=== PATIENT | male | born 1965 | race Caucasian/White ===

== ENCOUNTER 2016-11-10 03:56 | Emergency (ER) | payer MEDICAID ==
[~2016-11-10] VITALS: Ht 170.2 cm; Wt 92.5 kg
[2016-11-10] MEDS ORDERED: LACTULOSE10 GM/15 M PO (04:05)
[2016-11-10] MEDS ORDERED: SPIRONOLACTONE50 MG PO (04:05)
[2016-11-10] MEDS ORDERED: NORCO 325 MG-51 TAB PO (04:06)
[2016-11-10] MEDS ORDERED: LEADER MELATONIN5 MG PO (04:06)
[2016-11-10] MEDS ORDERED: PAROXETINE20 MG PO (04:06)
[2016-11-10 04:27] LABS: HEMOGLOBIN 14.4 g/dL (14.1-18.0)
--- NOTE | 2016-11-10 05:27 | Emergency Room Report ---
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 PT STATES THAT IT STARTED TONIGHT AROUND 2099. PT ALSO COMPLAINING OF PAIN IN LOWER BACK THAT HE STATES IS CHRONIC BUT HE WAS UNABLE TO TAKE HIS PAIN MEDICINE. PT ALSO WITH CIRRHOSIS OF THE LIVER AND KNOWN INGUINAL HERNIA Onset of symptoms date/time:11/09/16 or onset unknown for: Treatment Prior to Arrival: PT TRANSPORTED TO ED BY EMS. IV STARTED IN LAC AND IV FLUIDS STARTED. 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 N Clinical Suspician of Infection? N Mental Status: 1 - Regular (Normal Baseline) Sepsis Risk:Low Sepsis Risk Have you (or family members/close friends) recently traveled outside the [place]? N If Yes, where/when: Have you had exposure to infectious disease within the past month? N TB? Other? Specify: Source patient, RN notes reviewed, family, old records Exam Limitations no limitations Comment vomiting blood x 3 tonight with known hx of cirrhosis and no fever or rash Cardiac Chest Pain Chest pain indicative of cardiac No Timing/Duration this evening Severity moderate ALLERGIES Coded Allergies: No Known Allergies (11/10/16) Home Medications Reported Medications Spironolactone (Spironolactone) 50 MG PO BID #60 Lactulose (Lactulose) 10 GM PO BID #946 PAROXETINE (Paroxetine HCl) 20 MG PO DAILY HYDROCODONE/ACETAMINOPHEN ([place] 5-325 Tablet) 1 TAB PO TID Melatonin 5 MG PO QHS History Medical History General CAD? No Angina: No NV: No Hypertension? No Hyperlipidemia? No CHF? No DVT? No PE? No COPD? No Asthma? No Anemia? No GERD? No Gastric ulcers? No GI Bleed? No Hernia? Yes Thyroid Problems? No Hypothyroidism? No CVA? No Seizures? No Diabetes? No Renal Insuffiency? No End Stage Renal Disease? No UTI? No Stones? No BPH? No GB Disease: No Nephritic Syndrome? Yes Asplenia? No Hepatitis? Yes Sickle Cell Disease? No Arthritis? No Migraines? No Cataracts? No Glaucoma? No MRSA? No HIV? No TB? No Anxiety? No Depression? No Cancer? No More? Yes Additional hx: JAUNDICE, LOWER BACK PAIN, ALCOHOL ABUSE CIRRHOSIS OF THE LIVER, HEP C, OSTEO- ARTHRITIS Immunization Hx Ped.Immunizations UTD No DT/Tetanus 5-10 Years Ago Surgical Hx Previous Surgery?Y Appendectomy Social History Smoking Hx Smoker: Current Every Day Smoker Tobacco: Yes Type Cigarettes Packs/day < 1 Pack Are you/the child exposed to second-hand smoke: Yes Alcohol Alcohol: No Drugs none Review of Systems All Other Systems Reviewed and Negative Constitutional denies fever Eyes denies drainage ENT denies: ear pain, epistaxis, throat pain. Respiratory denies cough, denies shortness of breath, denies wheezing Cardiovascular denies chest pain, denies syncope Gastrointestinal see HPI, denies abdominal pain, nausea, vomiting Genitourinary denies: dysuria, frequency, hesitancy, hematuria. Musculoskeletal back pain, denies joint pain, denies joint swelling, denies neck pain Skin denies rash Psychiatric/Neurological denies headache, denies seizure Physical Exam Vital Signs Vital Signs Date Time Temp Pulse Resp B/P Pulse O2 O2 Flow FiO2 Ox Delivery Rate 11/10 0620 109 18 94/59 94 11/10 0517 105 18 96/65 100 2 11/10 0415 98 11/10 0357 99.1 96 18 99/52 100 2 - WBC >12,000 or <4,000 or 10% bands? 2 or more SIRS Criteria Met? B/P:/59 MAP:67 Creatinine >2.0? UA output<0.5ml/kg/hr for 2 hrs? Platelet count >100,000? Lactate >2.0mmol/1? INR >1.2 or PTT > than 60 sec? Evidence of Organ Dysfunction? Provider documented clinical suspician of infection? N Sepsis Criteria Count: 1 Sepsis Risk: Low Sepsis Risk General Appearance no apparent distress Eye Exam - bilateral eye PERRL, bilateral eye EOMI Comment sl icterus Ear, Nose, Throat dry mm Neck non-tender Respiratory Status No: respiratory distress. Lung Sounds bilateral: decreased breath sounds. Cardiovascular tachycardia, systolic murmur Peripheral Pulses Pulses normal Yes Gastrointestinal soft, distended, no guarding, no rebound, ascities Extremities swelling Strength 3 Lower Ext (L), 3 Lower Ext (R), 4 Upper Ext (L), 4 Upper Ext (R) Rectal black stool, heme positive stool Nurse present during exam? 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 No Results/Orders Laboratory Tests 11/10/16 0613: Stool Occult Blood POSITIVE 11/10/165: Ammonia 21 11/10/16 0405: Sodium 139, Potassium 6.2 *H, Chloride 107, Carbon Dioxide 26, BUN 30 H, Creatinine 1.4 H, Estimated Creat Clear 80, Estimated GFR (MDRD) 53, Glucose 90 , Calcium 8.6, Total Bilirubin 3.6 H, AST 61 H, ALT 36, Alkaline Phosphatase 79, Total Protein 7.2, Albumin 1.9 L, Globulin 5.3 H, Albumin/Globulin Ratio 0.4 L, Amylase 42, Lipase 185, PT 16.6 H, INR 1.55 H, APTT 28.2, WBC 7.1, RBC 4.05 L, Hgb 14.4, Hct 43.6, MCV 107.8 H, RDW 14.8, Plt Count 129 L, MPV 10.5 H, Gran % 78.0, Gran # 5.5, Lymphocytes % 14.0, Monocytes % 6.8, Eosinophils % 0.3, Basophils % 1.0, Lymphocytes # 1.0, Monocytes # 0.5, Eosinophils # 0.0, Basophils # 0.1, PUBS MCHC 33.0, MCH 35.6 H Current Medication Orders Sig/Sy Start time Last Medication Dose Route Stop Time Status Admin Ondansetron HCl 4 MG ONCE ONE 11/10 629 DC 11/10 IV 11/10 630 0623 Ondansetron HCl 0 .STK-MED ONE 11/10 619 DC .ROUTE Sodium Polystyrene 0 .STK-MED ONE 11/10 619 DC Sulfonate .ROUTE Sodium Polystyrene 15 GM ONCE ONE 11/10 0515 DC Sulfonate PO 11/10 0516 Sodium Chloride 1,000 ML .Q1H1M 11/10 544 AC 11/10 IV 11/1035 Sodium Chloride 1,000 ML .STK-MED ONE 11/10 0432 DC IV Sodium Chloride 10 ML PRN PRN 11/105 AC IV 11/11 412 Orders Procedure Date/time Status DIET-NOTHING BY MOUTH 11/10 B Active STOOL OCCULT BLOOD 11/10 0511 Complete ELECTROCARDIOGRAM REQUEST 11/10 05 Active PARTIAL THROMBOPLASTIN TIME 11/10 528 Complete PROTHROMBIN TIME 11/[address] ABD & PELVIS W/O CONTRAST 11/10 418 Active OXYGEN PER NURSE 11/[address] ABD/PELVIS REQ 11/10 412 Complete IV SALINE LOCK 11/10 412 Active LIPASE 11/10 412 Complete CBC WITH AUTO DIFF 11/10 412 Complete CHEM 12 PROFILE 11/10 412 Complete AMYLASE 11/10 412 Complete AMMONIA 11/10 412 Complete CM/EKG 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 ST/Twave chgs, old ant changes XRAY/CT/US XRAY/CT/US CT abdomen, pelvis CT interpretation by discussed w/radiologist Time results known: 635 CT Results abnormal (see report) Departure Departure Time of Disposition 635 Disposition DC/XFER from ER to [facility] Clinical Impression Primary Impression: Acute upper gastrointestinal bleeding Secondary Impressions: Chronic back pain Qualifiers: Back pain location: low back pain Back pain laterality: bilateral Sciatica presence: unspecified whether sciatica present Qualified Code: M54.5 - Low back pain Cirrhosis Qualifiers: Hepatic cirrhosis type: alcoholic cirrhosis Ascites presence: with ascites Qualified Code: K70.31 - Alcoholic cirrhosis of liver with ascites Hyperkalemia Inguinal hernia of left side without obstruction or gangrene Renal insufficiency Condition STABLE Referrals Christian Holguin MD (Family) discussed with dr metzger and dr arroyo ED Critical Care Critical Care Yes Time spent 30-74 min Vital system(s) involved: Metabolic Failure I was present at bedside for Coordinating pt's care, Reviewing lab results, Discussing pt condition, For re-examinations at 0639
[2016-11-10 06:19] LABS: STOOL OCCULT BLOOD POSITIVE (NEG)
[2016-11-10 07:15] VITALS: BP 94/59
--- NOTE | 2016-11-10 12:48 | RADIOLOGY REPORT PS360 ---
CT ABD PELVIS W/O CONTRAST CLINICAL INDICATION: VOMITING BLOOD ORDERING PHYSICIAN: Omayra Patel MD PATIENT AGE: 51 years COMPARISON: None TECHNIQUE: Axial images obtained with sagittal and coronal reformats. PROCEDURE: Oral Contrast: None IV Contrast: None . FINDINGS: Lower thorax: Bibasilar atelectatic change with trace right pleural effusion ABDOMEN: Liver: The liver has a nodular contour and somewhat small consistent with cirrhosis. Gallbladder: Nondistended. No radio opaque stones. Pancreas: No masses or peripancreatic fluid collections. Spleen: Spleen is enlarged at 17 cm Adrenals: Unremarkable Kidneys/ureters: No masses. No renal calculi. No hydronephrosis. No perinephric fluid collections. No ureteral dilatation or obvious ureteral calculi. Stomach bowel: Diffuse mildly thickened large and small bowel which may be seen with portal hypertension. Large fluid containing left internal hernia Appendix: No evidence of appendicitis. PELVIS: Reproductive: Unremarkable Bladder: Nondistended. No obvious stones or masses. ABDOMEN & PELVIS: Peritoneum: There is a very large amount of ascites. No free air Lymph nodes: No enlarged lymph nodes apparent. Vasculature: No evidence of abdominal aortic aneurysm. No retroperitoneal hemorrhage evident. Bones: No acute fracture IMPRESSION: 1. Cirrhosis with splenomegaly and portal hypertension 2. Large amount of ascites. 3. Large left fluid containing inguinal hernia.
== END 2016-11-10 07:17 | disposition short-term general hospital (02) ==
LOC: ER 03:56
PROVIDERS: Emergency Medicine
DX: K92.2 Gastrointestinal hemorrhage, unspecified (principal); E87.5 Hyperkalemia; K70.31 Alcoholic cirrhosis of liver with ascites; M54.5 Low back pain
CPT/HCPCS: J2405